=== PATIENT | female | born 1995 | race Caucasian/White ===

== ENCOUNTER 2019-07-19 04:26 | Emergency (ER) | payer MEDICAID ==
--- NOTE | 2019-07-19 04:36 | PHYS DOC ---
Adult General Chief Complaint Chief Complaint: "..This is my second prengancy.. I am about 11 weeks.. I follow down at ... at [facility].. because of my narcotic dependence.. and I am on HPI HPI Patient is a 24 year old female who presents with above hx and complaints of increased leg edema. Patient states she has been seen in the high risk clinic at because of her narcotic addiction. Patient states she's been before and had a normal delivery. Recent ultrasound and showed an intrauterine fetus. Patient denies current narcotic use. (PAPITO BAUM MD) Review of Systems Review of Systems Constitutional: Denies fever or chills [] Eyes: Denies change in visual acuity, redness, or eye pain [] HENT: Denies nasal congestion or sore throat [] Respiratory: Denies cough or shortness of breath [] Cardiovascular: No additional information not addressed in HPI [] GI: Denies abdominal pain, nausea, vomiting, bloody stools or diarrhea [] : Denies dysuria or hematuria [] Musculoskeletal: Denies back pain or joint pain [] Integument: Denies rash or skin lesions [] Neurologic: Denies headache, focal weakness or sensory changes [] Endocrine: Denies polyuria or polydipsia [] All other systems were reviewed and found to be within normal limits, except as documented in this note. (PAPITO BAUM MD) Family History Family History Noncontributory (PAPITO BAUM MD) Current Medications Current Medications See nursing for home meds (PAPITO BAUM MD) Allergies Allergies No known drug allergies (PAPITO BAUM MD) Physical Exam Physical Exam Constitutional: Well developed, well nourished, no acute distress, non-toxic appearance. [] HENT: Normocephalic, atraumatic, bilateral external ears normal, oropharynx moist, no oral exudates, nose normal. [] Eyes: PERRLA, EOMI, conjunctiva normal, no discharge. [] Neck: Normal range of motion, no tenderness, supple, no stridor. [] Cardiovascular:Heart rate regular rhythm, no murmur [] Lungs & Thorax: Bilateral breath sounds equal apex with scattered wheezes auscultation [] Abdomen: Bowel sounds normal, soft, no tenderness, no masses, no pulsatile masses. [] Skin: Warm, dry, no erythema, no rash. [] Back: No tenderness, no CVA tenderness. [] Extremities: No tenderness, no cyanosis, no clubbing, ROM intact, bilateral lowe r leg edema. [] Neurologic: Alert and oriented X 3, normal motor function, normal sensory function, no focal deficits noted. []Hyperreflex- 3 beats at patella Psychologic: Affect anxious, judgement normal, mood normal. [] (PAPITO BAUM MD) EKG EKG [] (PAPITO BAUM MD) Radiology/Procedures Radiology/Procedures [] (PAPITO BAUM MD) Impressions: Obstetrical ultrasound HISTORY: Bilateral leg edema. No other reported symptoms. FINDINGS: Uterus measures 13.4 x 9.8 x 10.0 cm. Gestational sac is identified with a single pole. [place]-rump length measures 6.0 cm compatible with 12 weeks 3 days, with estimated sonographic due date of 01/28/2020. Amniotic fluid volume appears within normal limits. cardiac activity is documented with a heart rate of 152 bpm. The placenta is not characterized on this exam. Maternal right ovary measures 3.2 cm with intact blood flow. Maternal left ovary is not visualized, as it is obscured by bowel gas. IMPRESSION: Single viable intrauterine with estimated sonographic age of 12 weeks 3 days. Electronically signed by: Nahid Collado MD (07/19/2019 7:59 AM) [facility] DICTATED AND SIGNED BY: NAHID COLLADO MD DATE: 07/19/19 0759 CC: ABHINAV SANCHES DO; PAPITO BAUM MD; JUAN RAMON MUELLER ~ Bilateral lower extremity venous doppler ultrasound Indication: Leg edema. . Technique: Color Doppler, grayscale, and spectral waveform analysis is used to evaluate the right and left lower extremity deep venous system, including the common femoral vein, superficial femoral vein, popliteal vein, and visualized calf veins. Right leg: No evidence of deep venous thrombosis. Normal response to augmentation, normal compressibility and normal phasicity is demonstrated. Visualized calf veins are patent. Left leg: No evidence of deep venous thrombosis. Normal response to augmentation, normal compressibility and normal phasicity is demonstrated. Visualized calf veins are patent. Impression: Negative for deep venous thrombosis Electronically signed by: Nahid Collado MD (07/19/2019 7:54 AM) [facility] DICTATED AND SIGNED BY: NAHID COLLADO MD DATE: 07/19/19 0754 CC: ABHINAV SANCHES DO; PAPITO BAUM MD; JUAN RAMON MUELLER ~ (ABHINAV SANCHES DO) Course & Med Decision Making Course & Med Decision Making Pertinent Labs and Imaging studies reviewed. (See chart for details) Pt. endorsed to Dr. Sanches's shift change Impression: 1. Hx. 11 weeks 2. Leg Edema 3. History of narcotic dependence 4. Critical Hypokalemia 2.7 [] (PAPITO BAUM MD) Course & Med Decision Making The patient has been given IV replacement of potassium as well as oral replacement. Ultrasounds a viable around 12 weeks. Lower extremity ultrasound does not show DVT. I advised the patient follow up closely with her high risk clinic to track her potassium. She may need to be on oral supplementation daily. She is stable for discharge at this time. (ABHINAV SANCHES DO) Dragon Disclaimer Dragon Disclaimer This electronic medical record was generated, in whole or in part, using a voice recognition dictation system. (PAPITO BAUM MD) Departure Departure: Impression: Primary Impression: Lower extremity edema Additional Impressions: Hypokalemia Disposition: 01 HOME, SELF-CARE Condition: STABLE Referrals: JUAN RAMON MUELLER (PCP) Patient Instructions: Hypokalemia-Brief, - First Trimester, Easy -to-Read Dragon Disclaimer This chart was dictated in whole or in part using Voice Recognition software in a busy, high-work load, and often noisy Emergency Department environment. It may contain unintended and wholly unrecognized errors or omissions. (PAPITO BAUM MD) Problem Qualifiers PAPITO BAUM MD Jul 19, 2019 04:36 ABHINAV SANCHES DO Jul 19, 2019 08:14
[2019-07-19] MEDS ORDERED: IV RINGERS SOLUTION,LACTATED 1,000 ML IV SCH (04:45)
[2019-07-19 05:48] LABS: BASO % 1 % (0-3); EOS # 0.5 x10^3/uL (0.0-0.7); EOS % 6 % (0-3); HEMOGLOBIN 12.8 g/dL (12.0-15.5); LYMPH # 2.7 x10^3/uL (1.0-4.8); LYMPH % 32 % (24-48); MEAN CORPUSCULAR HEMOGLOBIN 32 pg (25-35); MEAN CORPUSCULAR HGB CONC 35 g/dL (31-37); MEAN CORPUSCULAR VOLUME 93 fL (79-100); MONO # 0.4 x10^3/uL (0.0-1.1); MONO % 5 % (0-9); NEUT % 58 % (31-73); PLATELET COUNT 232 x10^3/uL (140-400); RED BLOOD COUNT 3.98 x10^6/uL (3.50-5.40); RED CELL DISTRIBUTION WIDTH 11.9 % (11.5-14.5); WHITE BLOOD COUNT 8.6 x10^3/uL (4.0-11.0)
[2019-07-19 06:00] LABS: ALBUMIN 3.1 g/dL (3.4-5.0); CALCIUM 8.7 mg/dL (8.5-10.1); CREATININE 0.7 mg/dL (0.6-1.0); DIRECT BILIRUBIN 0.2 mg/dL (0.0-0.2); GFR 102.8; MAGNESIUM 1.8 mg/dL (1.8-2.4); TOTAL BILIRUBIN 0.9 mg/dL (0.2-1.0); TOTAL PROTEIN 7.2 g/dL (6.4-8.2)
[2019-07-19] MEDS ORDERED: POTASSIUM CHLORIDE 20 MEQ TABLET.ER. PO ONE (06:15)
[2019-07-19] MEDS ORDERED: POTASSIUM CHLORIDE 20MEQ 100 ML IV SCH (06:30)
[2019-07-19 07:46] LABS: BARBITURATES NEG (NEG); BENZODIAZEPINES POS (NEG); CANNABINOIDS NEG (NEG); COCAINE NEG (NEG); METHADONE NEG (NEG); OPIATES NEG (NEG); PHENCYCLIDINE NEG (NEG)
[2019-07-19 07:47] LABS: AMPHETAMINE/METHAMPHETAMINE POS (NEG)
[2019-07-19 07:51] LABS: BACTERIA,URINE MANY /HPF (0-FEW); BILIRUBIN,URINE NEG (NEG); CLARITY,URINE HAZY; COLOR,URINE AMBER; GLUCOSE,URINE NEG (NEG); GRANULAR CASTS,URINE OCC /HPF; NITRITE,URINE NEG (NEG); RBC,URINE 0 /HPF (0-2); SQUAMOUS EPITHELIAL CELL,UR MANY /LPF
--- NOTE | 2019-07-19 07:57 | RAD ---
Bilateral lower extremity venous doppler ultrasound Indication: Leg edema. . Technique: Color Doppler, grayscale, and spectral waveform analysis is used to evaluate the right and left lower extremity deep venous system, including the common femoral vein, superficial femoral vein, popliteal vein, and visualized calf veins. Right leg: No evidence of deep venous thrombosis. Normal response to augmentation, normal compressibility and normal phasicity is demonstrated. Visualized calf veins are patent. Left leg: No evidence of deep venous thrombosis. Normal response to augmentation, normal compressibility and normal phasicity is demonstrated. Visualized calf veins are patent. Impression: Negative for deep venous thrombosis Electronically signed by: Nahid Collado MD (07/19/2019 7:54 AM) [facility]
--- NOTE | 2019-07-19 08:01 | RAD ---
Obstetrical ultrasound HISTORY: Bilateral leg edema. No other reported symptoms. FINDINGS: Uterus measures 13.4 x 9.8 x 10.0 cm. Gestational sac is identified with a single pole. [place]-rump length measures 6.0 cm compatible with 12 weeks 3 days, with estimated sonographic due date of 01/28/2020. Amniotic fluid volume appears within normal limits. cardiac activity is documented with a heart rate of 152 bpm. The placenta is not characterized on this exam. Maternal right ovary measures 3.2 cm with intact blood flow. Maternal left ovary is not visualized, as it is obscured by bowel gas. IMPRESSION: Single viable intrauterine with estimated sonographic age of 12 weeks 3 days. Electronically signed by: Nahid Collado MD (07/19/2019 7:59 AM) [facility]
[2019-07-19 09:50] VITALS: BP 124/64
--- NOTE | 2019-07-20 02:06 | EKG ---
[address] [address] Test Date: 2019-07-19 Test Time: 05:25:48 Pat Name: CHAZ CASTRO Department: Room: Gender: F Architecture Analyst: : 1995 Requested By: PAPITO BAUM Order Number: [id number] Reading MD: Measurements Intervals [place] Rate: 101 P: 36 MI: 152 QRS: 26 QRSD: 80 T: -17 QT: 338 QTc: 439 Interpretive Statements SINUS TACHYCARDIA QRS(T) CONTOUR ABNORMALITY CONSIDER ANTEROLATERAL MYOCARDIAL DAMAGE T ABNORMALITY IN ANTERIOR LEADS INFERIOR LEADS ABNORMAL ECG RI6.01 No previous ECG available for comparison
[2019-07-21 08:28] LABS: POTASSIUM 2.7 mmol/L (3.5-5.1)
== END 2019-07-19 10:00 | disposition home or self-care (01) ==
LOC: ER 04:26 → EEVIPCON 04:26 → ER 10:00
DX: O12.01 Gestational edema, first trimester (principal); O99.281 Endocrine, nutritional and metabolic diseases complicating pregnancy, first trimester; O99.321 Drug use complicating pregnancy, first trimester; F11.20 Opioid dependence, uncomplicated; E87.6 Hypokalemia; Z3A.12 12 weeks gestation of pregnancy
CPT/HCPCS: 36415; 76801; 80048; 80076; 80307; 81001; 82550; 83690; 83735; 83880; 84443; 84484; 84702; 85025; 85379; 85610; 85730; 86900; 86901; 87086; 87186; 93005; 93970; 96365; 96366; 99285; J3480; J7120

== ENCOUNTER 2021-02-04 12:31 | Emergency (ER) | payer MEDICAID ==
[~2021-02-04] VITALS: Ht 162.6 cm; Wt 82.8 kg
[2021-02-04] MEDS ORDERED: IV NORMAL SALINE 1,000ML 1,000 ML IV ONE (13:00)
--- NOTE | 2021-02-04 13:01 | PHYS DOC ---
Past History Past Medical History: Hypertension, Other Additional Past Medical Histor: ADD; opiate addiction currently on suboxan for tx Past Surgical History: Tonsillectomy, Other Additional Past Surgical Histo: D&C, WISDOM TEETH Alcohol Use: None Drug Use: Marijuana General Adult EDM: Chief Complaint: VAGINAL BLEEDING Problems: (1) Vaginal bleeding HPI: HPI: 25-year-old female presents the emergency department complaining of vaginal bleeding for the past 3 days after she had an procedure done at [facility]. She reports vaginal bleeding since this procedure, which she says is not a D&C. She states today she passed three large blood clots approximately the size of a lemon and has gone through three maxipads. She denies any abdominal pain, nausea, vomiting. She does admit to some marijuana use today. She admits that she feels faint, tired, mildly short of breath and not herself. She denies any vaginal discharge. [facility] called [facility] earlier this morning who told her to come to the ER for evaluation. The patient denies hx of bleeding disorder, nausea, vomiting, fever, chills, chest pain, abdominal pain, urinary symptoms, cough, recent trauma, or any other complaints. Review of Systems: Review of Systems: Constitutional: Noticed to fatigue. Denies fever. Eyes: Denies change in vision, pain. HENT: Denies congestion or sore throat. Respiratory: Admits to shortness of breath, denies cough. Cardiovascular: Denies chest pain or edema. GI: Denies abdominal pain, nausea. : Admits to vaginal bleeding, denies urinary problems. Musculoskeletal: Denies extremity pain, or trauma. Skin: Denies rash, skin change. Neurologic: Denies headache, focal weakness. Psychiatric: Denies depression or anxiety. All other systems reviewed as negative except for what was mentioned in the HPI. Family History: Family History: Noncontributory Current Medications: Current Meds: Current Medications Medications (Trade) Dose Ordered Sig/Parth Route PRN Reason Start Time Stop Time Status Last Admin Dose Admin Sodium Chloride 1,000 ml @ 1,000 mls/hr 1X ONCE IV 02/04/21 13:00 02/04/21 13:59 DC 02/04/21 13:27 Allergies: Allergies: Allergies Coded Allergies Type Severity Reaction Last Updated Verified No Known Drug Allergies 1/11/20 No Physical Exam: PE: Constitutional: No acute distress, non-toxic appearance. HENT: Atraumatic, bilateral external ears normal, nose normal. Eyes: PERRLA, EOMI, conjunctiva normal, no discharge. Neck: Normal range of motion, no tenderness, supple, no stridor. Cardiovascular: Heart rate regular rhythm. 2+ radial pulses Lungs & Thorax: No respiratory distress, symmetrical expansion. Bilateral breath sounds clear to auscultation Abdomen: Soft, no tenderness Genitourinary: External: Normal external genitalia, no lesions. Speculum: Normal vaginal wall mucosa without lacerations. Os closed. Clear scant vaginal discharge. Mild active bleeding. Cultures and wet mount obtained. Bimanual: Os closed. No cervical motion tenderness. No adnexal tenderness or masses palpated. 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 Extremities: No tenderness, no cyanosis, ROM intact, no edema. Neurologic: Alert and oriented X 3, normal motor function, normal sensory function, no focal deficits noted. Non ataxic gait. GCS 15. Psychologic: Affect normal, judgment normal, mood normal. Current Patient Data: Labs: Laboratory Tests Test 02/04/21 13:00 02/04/21 13:05 Urine Collection Type Void Urine Color Brown Urine Clarity Turbid Urine pH 6.0 Urine Specific [place] 1.025 Urine Protein 30 mg/dl (NEG-TRACE) Urine Glucose (UA) Neg mg/dL (NEG) Urine Ketones (Stick) Neg mg/dL (NEG) Urine Blood Large (NEG) Urine Nitrite Neg (NEG) Urine Bilirubin Neg (NEG) Urine Urobilinogen Dipstick 0.2 mg/dL (0.2 mg/dL) Urine Leukocyte Esterase Trace (NEG) Urine RBC Tntc /HPF (0-2) Urine WBC 1-4 /HPF (0-4) Urine Squamous Epithelial Cells Occ /LPF Urine Bacteria Few /HPF (0-FEW) White Blood Count 9.0 x10^3/uL (4.0-11.0) Red Blood Count 3.86 x10^6/uL (3.50-5.40) Hemoglobin 12.3 g/dL (12.0-15.5) Hematocrit 36.0 % (36.0-47.0) Mean Corpuscular Volume 93 fL (79-100) Mean Corpuscular Hemoglobin 32 pg (25-35) Mean Corpuscular Hemoglobin Concent 34 g/dL (31-37) Red Cell Distribution Width 13.3 % (11.5-14.5) Platelet Count 244 x10^3/uL (140-400) Neutrophils (%) (Auto) 70 % (31-73) Lymphocytes (%) (Auto) 24 % (24-48) Monocytes (%) (Auto) 4 % (0-9) Eosinophils (%) (Auto) 2 % (0-3) Basophils (%) (Auto) 0 % (0-3) Neutrophils # (Auto) 6.4 x10^3uL (1.8-7.7) Lymphocytes # (Auto) 2.1 x10^3/uL (1.0-4.8) Monocytes # (Auto) 0.4 x10^3/uL (0.0-1.1) Eosinophils # (Auto) 0.1 x10^3/uL (0.0-0.7) Basophils # (Auto) 0.0 x10^3/uL (0.0-0.2) Sodium Level 140 mmol/L (136-145) Potassium Level 3.4 mmol/L (3.5-5.1) L Chloride Level 105 mmol/L (98-107) Carbon Dioxide Level 25 mmol/L (21-32) Anion Gap 10 (6-14) Blood Urea Nitrogen 9 mg/dL (7-20) Creatinine 0.7 mg/dL (0.6-1.0) Estimated GFR (Cockcroft-Gault) 102.0 Glucose Level 119 mg/dL (70-99) H Calcium Level 8.7 mg/dL (8.5-10.1) Vital Signs: Vital Signs Date Time Temp Pulse Resp B/P (MAP) Pulse Ox O2 Delivery O2 Flow Rate FiO2 02/04/21 15:06 85 140/76 (97) 02/04/21 12:44 136 20 188/87 99 Radiology/Procedures: Radiology/Procedures: EXAMINATION: US PELVIS COMPLETE, 02/04/2021 12:59 PM CLINICAL INDICATION: Vaginal bleeding status post 3 days ago TECHNIQUE: Grayscale, color and spectral Doppler ultrasound images of the pelvis via transabdominal approach. COMPARISON: None. FINDINGS: The uterus measures 10.4 x 5.7 x 6.7 cm. The endometrial stripe measures 1.5 centimeters in thickness and is mildly heterogeneous. No focal mass or hyperemia within the endometrium. No myometrial mass. The right ovary measures 3.0 x 1.8 x 1.7 cm. The left ovary measures 2.2 x 1.5 x 1.7 cm. The ovaries are normal in appearance with normal blood flow. No adnexal mass or free fluid. IMPRESSION: Mildly thickened and heterogeneous endometrial stripe measuring 1.5 cm. Retained products of conception cannot be excluded. Electronically signed by: Bella Miller MD (02/04/2021 1:59 PM) Heart Score: C/O Chest Pain: No Course & Med Decision Making: Course & Med Decision Making Patient was seen for vaginal bleeding, results are as above with normal lab results. Her pelvic was unremarkable. I discussed the case with [facility] on-call Dr. Marroquin, agrees with discharge and follow-up with [facility], more bleeding is likely expected given her recent vacuum procedure. I discussed this with the patient and also advised her on return precautions. Her pulse is improved and her symptoms are improving in the emergency department she states that her bleeding has definitely gotten less heavy at the time of discharge. Departure Departure: Impression: Primary Impression: Vaginal bleeding Disposition: HOME / SELF CARE / HOMELESS Condition: STABLE Referrals: JUAN RAMON MUELLER (PCP) Patient Instructions: Abnormal Uterine Bleeding Additional Instructions: You are seen in the emergency department vaginal bleeding your labs are unremarkable today. You need to follow-up with an [facility] provider next week for further care and assessment. It is likely that you will continue to have some vaginal bleeding at home over the next few days. If your bleeding becomes too heavy, changes course or anything changes that concerns you we are open 29/01 to assist you. KRISTOPHER PALMER DO Feb 04, 2021 13:01
[2021-02-04 13:18] LABS: BASO % 0 % (0-3); EOS # 0.1 x10^3/uL (0.0-0.7); EOS % 2 % (0-3); HEMOGLOBIN 12.3 g/dL (12.0-15.5); LYMPH # 2.1 x10^3/uL (1.0-4.8); LYMPH % 24 % (24-48); MEAN CORPUSCULAR HEMOGLOBIN 32 pg (25-35); MEAN CORPUSCULAR HGB CONC 34 g/dL (31-37); MEAN CORPUSCULAR VOLUME 93 fL (79-100); MONO # 0.4 x10^3/uL (0.0-1.1); MONO % 4 % (0-9); NEUT # 6.4 x10^3uL (1.8-7.7); NEUT % 70 % (31-73); PLATELET COUNT 244 x10^3/uL (140-400); RED BLOOD COUNT 3.86 x10^6/uL (3.50-5.40); RED CELL DISTRIBUTION WIDTH 13.3 % (11.5-14.5)
[2021-02-04 13:39] LABS: CALCIUM 8.7 mg/dL (8.5-10.1); CREATININE 0.7 mg/dL (0.6-1.0); POTASSIUM 3.4 mmol/L (3.5-5.1)
[2021-02-04 13:48] LABS: BILIRUBIN,URINE NEG (NEG); CLARITY,URINE TURBID; COLOR,URINE BROWN; GLUCOSE,URINE NEG (NEG); NITRITE,URINE NEG (NEG); UROBILINOGEN,URINE 0.2 mg/dL (0.2 mg/dL)
[2021-02-04 13:49] LABS: BACTERIA,URINE FEW /HPF (0-FEW); RBC,URINE TNTC /HPF (0-2); SQUAMOUS EPITHELIAL CELL,UR OCC /LPF
--- NOTE | 2021-02-04 14:02 | RAD ---
EXAMINATION: US PELVIS COMPLETE, 02/04/2021 12:59 PM CLINICAL INDICATION: Vaginal bleeding status post 3 days ago TECHNIQUE: Grayscale, color and spectral Doppler ultrasound images of the pelvis via transabdominal a pproach. COMPARISON: None. FINDINGS: The uterus measures 10.4 x 5.7 x 6.7 cm. The endometrial stripe measures 1.5 centimeters in thickness and is mildly heterogeneous. No focal mass or hyperemia within the endometrium. No myometrial mass. The right ovary measures 3.0 x 1.8 x 1.7 cm. The left ovary measures 2.2 x 1.5 x 1.7 cm. The ovaries are normal in appearance with normal blood flow. No adnexal mass or free fluid. IMPRESSION: Mildly thickened and heterogeneous endometrial stripe measuring 1.5 cm. Retained products of conception cannot be excluded. Electronically signed by: Bella Miller MD (02/04/2021 1:59 PM) [id number]
[2021-02-04 15:06] VITALS: BP 140/76
== END 2021-02-04 15:19 | disposition home or self-care (01) ==
LOC: ER 12:31
DX: N93.8 Other specified abnormal uterine and vaginal bleeding (principal); I10 Essential (primary) hypertension; F12.10 Cannabis abuse, uncomplicated
CPT/HCPCS: 36415; 76856; 80048; 81001; 85025; 86850; 86900; 86901; 87086; 87491; 87591; 96360; 99284; J7030